=== PATIENT | female | born 1980 | race Two or more races ===

== ENCOUNTER 2023-11-16 18:05 | Emergency (ER) | payer OTHER ==
[~2023-11-16] VITALS: Ht 152.4 cm; Wt 77.1 kg
[2023-11-16] MEDS ORDERED: KETOROLAC TROMETHAMINE 60 MG VIAL IM ONE ×2 (20:45→20:50)
[2023-11-16] MEDS ORDERED: DICLOFENAC SODI50 MG PO (22:57)
== END 2023-11-16 23:05 | disposition home or self-care (01) ==
LOC: ER 18:07
DX: S60.211A Contusion of right wrist, initial encounter (principal); W17.89XA Other fall from one level to another, initial encounter; Y93.89 Activity, other specified; Y92.89 Other specified places as the place of occurrence of the external cause; Y99.9 Unspecified external cause status

== ENCOUNTER 2023-12-12 18:49 | Emergency (ER) | payer OTHER ==
[~2023-12-12] VITALS: Ht 152.4 cm; Wt 77.1 kg
[~2023-12-12 18:49] MED LIST: DICLOFENAC SODI50 MG PO
[2023-12-12 20:58] LABS: HEMATOCRIT 37.7 % (36.0-45.00); HEMOGLOBIN 13.3 g/dL (12.0-15.00); MEAN CORPUSCULAR HEMOGLOBIN 31.1 pg (27.00-32.0); MEAN CORPUSCULAR HGB CONC 35.4 g/dl (32.0-36.0); PLATELET COUNT 249 K/uL (150-450); RED BLOOD COUNT 4.28 M/uL (4.00-6.00); RED CELL DISTRIBUTION WIDTH 13.3 % (11.5-14.5)
[2023-12-12 21:46] LABS: PH,URINE 5.5 (5.0-8.0); URINE APPEARANCE Cloudy; URINE BILIRRUBIN Negative (NEGATIVE); URINE BLOOD Moderate; URINE COLOR Yellow; URINE GLUCOSE Negative (NEGATIVE); URINE KETONE Trace (NEGATIVE); URINE LEUKOCYTE Trace; URINE NITRATE Negative; URINE PROTEIN Trace (NEGATIVE)
[2023-12-12 21:47] LABS: URINE BACTERIA 1727.2 uL (0.0-1933); URINE EPITHELIAL CELLS 16.5 uL (0.0-38.8); URINE RBC 73.9 uL (0.0-20.8); URINE WBC 22.2 uL (0.0-23.2)
[2023-12-12 21:59] LABS: URINE CAST 0.76 uL (0.0-1.40)
== END 2023-12-12 22:29 | disposition home or self-care (01) ==
LOC: ER 18:50
DX: R11.2 Nausea with vomiting, unspecified (principal); R11.10 Vomiting, unspecified